=== PATIENT | male | born 1970 | race Caucasian/White ===

== ENCOUNTER 2023-03-03 00:03 | Inpatient (IN) | payer OTHER, SELFPAY ==
[2023-03-03] VITALS (35 sets, daily range): BP systolic 104–149; BP diastolic 70–108; PULSE 55–150; RESP 12–22; TEMP 36.4–37; O2SAT 94–98; BMI 32.3
--- NOTE | ~2023-03-03 | XR_ITS ---
EXAMINATION: XR chest 1V portable INDICATION: Heart palpitations TECHNIQUE: Portable AP chest at 1242 hours COMPARISON: 08/09/2010 FINDINGS: There is a questionable retrocardiac opacity. No pleural effusion or pneumothorax. The card iomediastinal silhouette is normal. IMPRESSION: 1. Possible retrocardiac opacity which could reflect pneumonia or lung nodule. Further evaluation wit h CT of the chest is recommended. Reviewed, dictated and finalized at location F. DEMURRAGE CLERK IMPRESSION: 1. Possible retrocardiac opacity which could reflect pneumonia or lung nodule. Further evaluation with CT of the chest is recommended.
--- NOTE | ~2023-03-03 | US_ITS ---
EXAMINATION: US carotid duplex BI DATE: INDICATION: Claudication. TECHNIQUE: Grayscale, color Doppler, and pulsed Doppler images of the cervical carotid arteries were obtained. The degree of vessel stenosis is placed in one of the following categories: normal, <50%, 5 0-69%, >=70% but less than near-occlusion, near-occlusion, or total occlusion. Note that percent sten osis relative to normal distal artery lumen diameter is indirectly measured from velocity measurement s as described by Yovany, et al. Radiology 2003; 229:340-346. Notes: Normal: Peak systolic velocity <125 centimeters/sec and no plaque <50%. Peak systolic velocity <125 ( EDV <40; ICA/CCA PSV ratio <2.0; used these factors only a tandem lesions or low cardiac output or co ntralateral disease) 50-69 %: PSV 125-230 (EDV 40-100; ratio 2-4) >= 70% but less than near occlusion: PSV greater than 230 (EDV > 100; ratio> 4.0) Near Occlusion: PSV that is variable; markedly narrowed lumen Occlusion: Absent flow on color/spectral Doppler and no lumen on kaminski scale. COMPARISON: None. FINDINGS: RIGHT: The right common carotid artery (CCA) peak systolic velocity (PSV) is 86 cm/s. The right internal car otid artery (ICA) PSV is 111 cm/s. The right ICA end-diastolic velocity (EDV) is 45 cm/s. The right I CA/CCA PSV ratio is 1.3. The external carotid artery (ECA) PSV is 90 cm/s. There is antegrade flow in the right vertebral artery. LEFT: The left CCA PSV is 102 cm/s. The left ICA PSV is 83 cm/s. The left ICA EDV is 38 cm/s. The left ICA/ CCA PSV ratio is 0.8. The ECA PSV is 53 cm/s. There is antegrade flow in the left vertebral artery. IMPRESSION: 1. Less than 50% stenosis in the right internal carotid artery by sonographic criteria. 2. Less than 50% stenosis in the left internal carotid artery by sonographic criteria. Reviewed, dictated and finalized at location B. ENT COMPANION IMPRESSION: 1. Less than 50% stenosis in the right internal carotid artery by sonographic julien lozoya. 2. Less than 50% stenosis in the left internal carotid artery by sonographic josé miguel olivares.
--- NOTE | 2023-03-03 00:09 | ECG_ITS ---
Measurements Intervals [place] Rate: 144 P: ID: 0 QRS: 16 QRSD: 88 T: 30 QT: 284 QTc: 441 Interpretive Statements SUPRAVENTRICULAR TACHYCARDIA DELAYED PRECORDIAL R/S TRANSITION BORDERLINE ST-T WAVE ABNORMALITY- ANTEROLAT/INF LEADS BASELINE ARTIFACT- II, III, AVF ABNORMAL ECG NO PREVIOUS ECG AVAILABLE FOR COMPARISON Electronically Signed On 03-03-2023 9:17:08 AREA DIRECTOR by Darien Dickinson D.O.
--- NOTE | 2023-03-03 00:26 | PC.NURSE ---
0027 The modified valsava maneuver was performed and brought patients HR from 160 to 110. Patient tolerated well.
--- NOTE | 2023-03-03 00:29 | ECG_ITS ---
Measurements Intervals [place] Rate: 106 P: 5 WI: 173 QRS: 12 QRSD: 94 T: 101 QT: 318 QTc: 422 Interpretive Statements SINUS TACHYCARDIA DELAYED PRECORDIAL R/S TRANSITION NONSPECIFIC T-WAVE ABNORMALITY- HIGH LATERAL LEADS ABNORMAL ECG COMPARED TO ECG 03/03/2023 00:10:36 SINUS TACHYCARDIA NOW PRESENT Electronically Signed On 03-03-2023 9:17:45 BRIGADIER by Darien Dickinson D.O.
[2023-03-03] MEDS: SODIUM CHLORIDE 0.9% IV 2,000 ML 999 ML IV CONT (00:32)
[2023-03-03 00:45] LABS: Alanine Aminotransferase 110 U/L (6-50); Albumin Level 4.9 g/dL (3.5-5.1); Alkaline Phosphatase 50 U/L (38-126); Anion Gap 14 mmol/L (8-16); Aspartate Amino Transferase 75 U/L (17-59); Bilirubin,Total 0.6 mg/dL (0.2-1.3); Blood Urea Nitrogen 14 mg/dL (9-20); Calcium 9.7 mg/dL (8.4-10.2); Carbon Dioxide 21 mmol/L (22-30); Chloride 105 mmol/L (98-107); Estimated CRCL calculation 131 ml/min; Estimated Glomerular Filt Rate > 60; Glucose 129 mg/dL (65-110); Lipase 143 U/L (23-300); Potassium 4.2 mmol/L (3.4-5.0); Sodium 140 mmol/L (137-145)
[2023-03-03 00:46] LABS: Prothrombin Time 13.2 Seconds (11.1-14.7)
[2023-03-03 00:47] LABS: Partial Thromboplastin Time 28.1 SECONDS (22.3-36.8)
[2023-03-03 01:22] LABS: Basophils Percent Auto 0.5 % (0.2-1.2); Eosinophils Absolute Auto 0.3 K/mm3 (0-0.3); Eosinophils Percent Auto 3.4 % (0-4.4); Hematocrit 47.8 % (42.0-52.0); Hemoglobin 16.2 g/dL (14.0-18.0); Immature Granulocyte Absolute 0.04 K/mm3 (0.00-0.031); Immature Granulocyte Percent A 0.5 % (0-0.5); Lymphocytes Absolute Auto 3.74 K/mm3 (0.9-3.2); Lymphocytes Percent Auto 42.6 % (18.3-44.2); Mean Corpuscular HGB Conc 33.9 g/dl (32-36); Mean Corpuscular Hemoglobin 32.6 pg (26-34); Mean Corpuscular Volume 96.2 fl (80-100); Monocytes Percent Auto 11.9 % (2.6-8.5); Neutrophils Absolute Auto 3.6 K/mm3 (1.3-6.7); Neutrophils Percent Auto 41.1 % (45.5-73.1); Platelet Count Result 217 k/mm3 (150-375); Red Blood Count 4.97 M/mm3 (4.6-6.20); Red Cell Distribution Width 13.1 % (11.5-14.5); White Blood Count 8.8 K/mm3 (4.5-10.0)
[2023-03-03 01:53] LABS: Troponin I 0.031 ng/mL (0.000-0.034)
--- NOTE | 2023-03-03 03:42 | ED.GENADULT ---
HPI - General Adult General Chief complaint: Arrhythmia/Palpitations Stated complaint: elevated heart rate Time Seen by Provider: 03/03/23 00:12 History of Present Illness HPI narrative: This is a 53-year-old male presenting ED with elevated heart rate. Patient has been having intermittent episodes of palpitations over the last several weeks. It started earlier today and has been consistent throughout the day. He came to the ER because he started to have jaw pain. Patient notes that over the last 2 weeks he started to develop significant pain in his jaw whenever he exerts himself. The pain then resolves when he rests. No diaphoresis vomiting chest pain or shortness of breath during these episodes. Patient had a cardiac workup. Related Data Home Medications Medication Instructions Recorded Confirmed krill [id number]-4-dha-epa 150 cap PO 06/02/19 03/21/22 mg-450 mg capsule,delayed release magnesium 30 mg tablet 30 mg PO DAILY 06/02/19 03/21/22 multivitamin 1 cap PO DAILY 06/02/19 03/21/22 Allergies Allergy/AdvReac Type Severity Reaction Status Date / Time No Known Allergies Allergy Verified 03/03/23 00:13 [facility] Past Medical History Medical History Right knee pain Family History Family History Sibling Family history of mental disorder Depression Mother Hypertension Family history of cardiovascular disease, Onset Age: 50 Family history of coronary artery disease Father Hypertension Family history of coronary artery disease Grandparent Family history of cardiovascular disease, Onset Age: 30 Social History Social History Smoking status: Never smoker Second hand tobacco smoke exposure: No Alcohol intake: current Alcohol use details: Moderate Substance use: never Lack of Transportation: No Lack of Food: Never True Current Housing: I Have Housing Concerned About Future Housing: No Difficulty Paying Gas/Electric Bills: No Difficulty Paying for Meds: No Currently Unemployed: No Education: High School Diploma/GED Living arrangements: with family Additional living arrangements comments: Leona Tinoco Occupation/Education: occupation Additional occupation/education comments: [employer] Gender identity (if verbalized by the patient): Male Exam Narrative: APPEARANCE: No apparent distress. Head: atraumatic. EYES: EOMI, NOSE: Atraumatic NECK: Trachea midline RESPIRATORY: No increased rate of breathing CTAB CARDIOVASCULAR: Tachycardic, regular rate, no peripheral edema ABDOMINAL: Non-distended MUSCULOSKELETAl: No obvious deformities NEURO: Alert. Moving 4/4 extremities SKIN:: Warm, dry. Normal color PSYCHIATRIC: Normal affect Course Vital Signs Vital signs: Vital Signs Temperature 97.6 F 03/03/23 00:03 Pulse Rate 150 H 03/03/23 00:03 Respiratory Rate 16 03/03/23 00:03 Blood Pressure 146/108 H 03/03/23 00:03 Pulse Oximetry 96 03/03/23 00:03 Oxygen Delivery Room Air 03/03/23 00:03 Temperature 97.6 F 03/03/23 00:03 Pulse Rate 89 03/03/23 03:21 Respiratory Rate 13 03/03/23 03:21 Blood Pressure 133/93 H 03/03/23 03:21 Pulse Oximetry 96 03/03/23 03:21 Oxygen Delivery Room Air 03/03/23 00:14 Medical Decision Making [facility] Narrative Medical decision making narrative: -Course: 53-year-old male presenting with SVT. Patient responded to vagal maneuvers. The patient had jaw pain during his SVT. He has also developed jaw pain that occurs any time he exerts himself and resolves with rest. This is new over the last 2 weeks. This is concerning for Angina/unstable angina. Additionally he has elevated troponins after his episode of SVT which also suggests underlying CAD. Patient will be admitted to the hospital for cardiac ev
[2023-03-03 04:20] LABS: Troponin I 0.153 ng/mL (0.000-0.034)
[2023-03-03] MEDS: ENOXAPARIN 120 MG/0.8 ML SYRINGE 102 MG SUB-Q ×2 (04:58→17:19)
--- NOTE | 2023-03-03 06:15 | ADMGEN ---
This patient, Darryl Tinoco, was admitted to IMU Room 209-01. Patient/family oriented to hospital policies and general routines including ID bracelet, bed and alarms, visiting hours, pain management, procedures, bathroom and other care routines, personal items, smoking policy, room service/diet, and visiting hours. Information on how to activate the Rapid Response Team has been discussed. Patient/Family are encouraged to report perceived risks to care and to ask questions if they do not understand what they are told or what they should do.
[2023-03-03 07:18] LABS: Troponin I 0.256 ng/mL (0.000-0.034)
[2023-03-03] MEDS: ASPIRIN 81 MG ENTERIC TABLET PO (08:43)
--- NOTE | 2023-03-03 08:47 | PM.CNCAR ---
Assessment and Plan Assessment and plan (1) SVT (supraventricular tachycardia): Code(s): I47.10 - Supraventricular tachycardia, unspecified Status: Acute (2) Elevated troponin: Code(s): R79.89 - Other specified abnormal findings of blood chemistry Status: Acute Plan 53-year-old man who I believe has 2 distinct cardiovascular problems. He has exertional chest discomfort typical of angina pectoris with his principal risk factor being a prevalent family history of ischemic disease. He also has a supraventricular tachycardia I suspect this is most likely atypical atrial flutter. When he was rather tachycardic last evening he was having some of the ischemic pain that he typically gets with exertion. Troponin levels radha very modestly following this event. I am going to start him on beta-javier treatment today and arrange for coronary angiography tomorrow. I suspect this procedure will occur in the afternoon. Further recommendations course will be forthcoming those findings Parviz Jarvis MD [facility] History of Present Illness History of Present Illness Consult date/time: 03/03/23 08:47 Reason For Visit: Unstable Angina/NSTEMI Narrative: This is a very pleasant 53-year-old man I am seeing at the request of the hospitalist because of chest pain and elevation of troponin. He has no prior known cardiac problems and presented to the emergency department in the middle of the night with symptoms of tachycardia/palpitations and chest pain. He states that he was awakened in the middle of the night about 12 30 with the sense of his heart beating rapidly. He has an [employer] watch and he states his pulse was as fast as 170-180 beats per minute. He and his kind of watch this for about half an hour and then decided to come into the emergency room for evaluation. He came in by ambulance. He was found to be tachycardic and his electrocardiogram appears to show evidence of an SVT, possibly atypical atrial flutter his heart rate on arrival was 145. He apparently converted spontaneously back to sinus rhythm with a heart rate in the 70s to 80s and did not have any ST or T-wave abnormalities. His troponin levels were checked and they have risen slightly to 0.2. He feels comfortable at this time and denies any complaints. He was admitted to the IMU with orders for aspirin and Lovenox. I do not believe the hospitalist service have seen him yet as I dictate this note. The patient interestingly reports symptoms of abrupt tachycardia and palpitations for a number of years these episodes occur very infrequently and have never been diagnosed as such. He also reports it sounds like independent from this history of exertional chest pain that began about 2 or 3 months ago. He states that with mild to moderate activity such as walking distances he will have a central chest pressure that tends to radiate to the anterior aspect of the neck and the jaw that resolves with a few minutes of rest. The symptoms typically occur in exertional fashion but they did occur last night when he was tachycardic as well. He is not experiencing any lightheadedness syncope or near-syncope he denies any orthopnea PND or edema. He says his only previous significant medical problem is sleep apnea which is currently not treated. He also has a family history prevalent for ischemic heart disease. Review of Systems Constitutional: Constitutional: Reports no additional constitutional complaints Eyes: Eyes: Reports no additional eye complaints ENT: Reports system reviewed and no additional complaints, except as documented Cardiovascular: Cardiovascular: Reports as per HPI Respiratory: Respiratory: Reports dyspnea on exertion Gastrointestinal: Gastrointestinal: Reports no additional gastrointestinal complaints Musculoskeletal: Musculoskeletal: Reports no additional musculoskeletal complaints Integumentary/Breasts: Skin/Breast: Reports system reviewed and no ad
[2023-03-03] MEDS: METOPROLOL SUCCINATE EXT REL 50 MG TABCR PO (09:54)
[2023-03-03 15:10] LABS: HDL Direct 83 mg/dL; Triglycerides 133 mg/dL (<150)
[2023-03-03 15:11] LABS: Cholesterol 347 mg/dL (0-200)
[2023-03-03 15:13] LABS: LDL Cholesterol Direct 224 mg/dL
--- NOTE | 2023-03-03 17:54 | PM.IMHP ---
H&P: HPI History of Present Illness Date/Time: 03/03/23 17:54 Chief Complaint: palpitations/rapid heart rate and exertional pain radiating to his BL jaws Narrative: This is a 53 y/o M with PMH of elevated cholesterol not on treatment, and family hx of heart disease, who presents with an acute episode of rapid heart rate/palpitations. He was seen to be in SVT to 144 on the EKG in the ER. In the ER, vagal maneuvers were tried. The pt also had BL jaw pain during the SVT episode. After the vagal maneuvers, the SVT resolved and became sinus tach. His SVT strip showed some ST depressions in V3-5 chest leads. His sinus tach EKG did not show those same st changes and was normal. His CXR showed a retrocardiac opacity. He denies fever, chills, sob, cough, or chest pain, or recent or current illness. His troponin was elevated in ER and radha to 0.2. He was started on therapeutic lovenox. His PMH is also notable for a 2-3 year hx of palpitations and tachycardia that occurs both at rest and with exertion. These episodes self resolve with rest. He has not had this evaluated. It also includes a 2-3 weeks of exertional BL jaw claudication type pain. He denies chest pain. He recently experienced this pain on during a walk he was taking with his . He was planning on making an appointment with his PCP on Saturday, however he had to come in urgently for this tachycardia. Please see the note from the hospital educator for further history which includes sleep apnea and family hx of heart disease. In the pt's social hx, he used to be in the [employer] business and lived in [place]. 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 [facility] Past Medical History Medical History Right knee pain Family History Family History Sibling Family history of mental disorder Depression Mother Hypertension Family history of cardiovascular disease, Onset Age: 50 Family history of coronary artery disease Father Hypertension Family history of coronary artery disease Grandparent Family history of cardiovascular disease, Onset Age: 30 Social History Social History Smoking status: Never smoker Second hand tobacco smoke exposure: No Alcohol intake: current Drinks per week: 7 Alcohol use details: Moderate Substance use: never Substance use type: does not use Lack of Transportation: No Lack of Food: Never True Current Housing: I Have Housing Concerned About Future Housing: No Difficulty Paying Gas/Electric Bills: No Difficulty Paying for Meds: No Currently Unemployed: No Education: High School Diploma/GED Difficulty w/ Childcare or Family Care: No Living arrangements: with family Additional living arrangements comments: Leona Tinoco Occupation/Education: occupation Additional occupation/education comments: [employer] Gender identity (if verbalized by the patient): Male Spiritual care concerns: No Meds Home Medications and Allergies Home Medications Medication Instructions Recorded Confirmed Type krill [id number]-4-dha-epa 150 2 cap PO DAILY 06/02/19 03/03/23 History mg-450 mg capsule,delayed release magnesium 30 mg tablet 30 mg PO DAILY 06/02/19 03/03/23 History multivitamin 1 cap PO DAILY 06/02/19 03/03/23 History Allergies Allergy/AdvReac Type Severity Reaction Status Date / Time No Known Allergies Allergy Verified 03/03/23 00:13 Vital Signs Vital Signs - 24 hr 03/03/23 00:03 03/03/23 00:14 03/03/23 00:10 Temperature 97.6 F Pulse Rate 150 H 145 H Respiratory Rate 16 Blood Pressure 146/108 H Pulse Oximetry 96 97 97 Oxygen Delivery Room Air Room Air 03/03/23 00:15 03/03/23 00:30 03/03/23 00:36 Temperature Pulse Rate 148 H 108 H 105 H Respiratory Rate 12 13 18 Blood Pressure 121/99 H P
[2023-03-03] MEDS: ATORVASTATIN 40 MG TABLET 80 MG PO (21:38)
--- NOTE | 2023-03-03 21:58 | PCRCNOTE ---
Pt does not want to complete his apnea link study this evening, 03/03/2023. Pt states he is scheduled for two test in the morning and is worried he will not sleep much tonight due to being worried for the testing. Pt would rather try the apnea link study tomorrow night, 03/04/2023.
[2023-03-04] VITALS (33 sets, daily range): BP systolic 116–144; BP diastolic 71–98; PULSE 51–88; RESP 12–18; TEMP 36.5–37; O2SAT 94–100
[2023-03-04] MEDS: ASPIRIN 81 MG ENTERIC TABLET PO (09:57)
[2023-03-04] MEDS: METOPROLOL SUCCINATE EXT REL 50 MG TABCR PO (09:57)
[2023-03-04] MEDS: ATORVASTATIN 40 MG TABLET 80 MG PO (09:57)
--- NOTE | 2023-03-04 11:53 | PM.IMPN ---
Progress Note: A&P Assessment and Plan (1) Hyperlipidemia: Code(s): E78.5 - Hyperlipidemia, unspecified Status: Acute (2) Claudication: Code(s): I73.9 - Peripheral vascular disease, unspecified Status: Acute (3) Lung nodule: Code(s): R91.1 - Solitary pulmonary nodule Status: Acute (4) SVT (supraventricular tachycardia): Code(s): I47.10 - Supraventricular tachycardia, unspecified Status: Acute (5) Elevated troponin: Code(s): R79.89 - Other specified abnormal findings of blood chemistry Status: Acute (6) Obesity (BMI 30.0-34.9): Code(s): E66.9 - Obesity, unspecified Status: Acute Plan 1. Stable angina with mild troponin elevation without EKG changes NPO after midnight for planned coronary angiography with cardiology Appreciate cardiology consultation Has been placed on asa, metop 25 er, and therapeutic lovenox. He is asymptomatic 03/04: AM lovenox held for cardiac cath this morning. Asymptomatic this morning. 2. SVT on admission Resolved. Placed on metop 25 er by cardiology 03/04: no events overnight. 3. HLD lipitor 80 4. Lung nodule pt prefers to have CT high res noncon outpt with PCP to avoid excess costs asymptomatic from an infection perspective, therefore will not order covid/rsv/influenza testing 5. Neck claudication symptoms with exertion Most likely cardiac ischemia, but may be a major artery as well Start with carotid u/s. May need CTA test of the upper artery system. High risk of vasculopathy with hx 03/04: carotid u/s negative. if cardiac cath negative, consider CTA of the upper body, aortic type study to evaluate for stenosis of the major arteries. 6. Hx of sleep apnea Apnea link testing tonight 03/04: pt declined testing tonight due to carotid u/s and cardiac cath this morning. will try again tonight if pt is still here if he gets a stent. Full code Inpt/tele/imu Time Spent With Patient Time: 35 min Subjective Date/time seen: 03/04/23 11:53 Interval history: asymptomatic. had occasional sinus arrhythmia while he was sleeping. did not have any episodes of SVT overnight. AM dose of lovenox held for cardiac cath. Carotid u/s taken this morning was negative for BL stenosis. Exam Narrative: APPEARANCE: No apparent distress. Head: atraumatic. EYES:? EOMI, NOSE: Atraumatic NECK: Trachea midline RESPIRATORY: No increased rate of breathing CTAB CARDIOVASCULAR: ?rrr, nl s1,s2 no s3/s4 no murmur or rubs. no le edema ABDOMINAL: Non-distended MUSCULOSKELETAl: No obvious deformities NEURO: Alert. Moving 4/4 extremities SKIN:: Warm, dry. Normal color PSYCHIATRIC: Normal affect Objective Data Vital Signs Vital Signs: Vital Signs - 24 hr 03/03/23 12:00 03/03/23 12:00 03/03/23 15:58 Temperature 98.5 F Pulse Rate 72 67 Respiratory Rate 18 Blood Pressure 131/88 Pulse Oximetry 96 Oxygen Delivery Room Air 03/03/23 14:00 03/03/23 16:00 03/03/23 16:00 Temperature Pulse Rate 79 67 71 Respiratory Rate 18 Blood Pressure Pulse Oximetry 96 Oxygen Delivery Room Air 03/03/23 18:00 03/03/23 20:00 03/03/23 20:00 Temperature 98.6 F Pulse Rate 78 66 61 Respiratory Rate 18 Blood Pressure 144/81 H Pulse Oximetry 96 Oxygen Delivery 03/03/23 20:00 03/03/23 22:00 03/04/23 00:19 Temperature 97.7 F Pulse Rate 55 L 66 Respiratory Rate 18 Blood Pressure 143/91 H Pulse Oximetry 100 Oxygen Delivery Room Air 03/04/23 00:00 03/04/23 00:00 03/04/23 02:00 Temperature Pulse Rate 55 L 62 Respiratory Rate Blood Pressure Pulse Oximetry Oxygen Delivery Room Air 03/04/23 03:19 03/04/23 04:00 03/04/23 04:00 Temperature 98.6 F Pulse Rate 70 51 L Respiratory Rate 18 Blood Pressure 127/76 Pulse Oximetry 96 Oxygen Delivery Room Air 03/04/23 06:00 03/04/23 07:40 03/04/23 11:21 Temperature 98.0 F 98.3 F Pulse Rate 88 68 66 Respiratory
--- NOTE | 2023-03-04 14:29 | WPDMODSED ---
Moderate Sedation Note-Pt Data Patient Data Diagnosis: acute coronary syndrome / non ST elevation NC supraventricular tachycardia Present Complaint: chest pain/tachycardia palpitation Procedure to be performed/Plan: left heart catheterization Allergies Allergy/AdvReac Type Severity Reaction Status Date / Time No Known Allergies Allergy Verified 03/03/23 00:13 Home Medications Medication Instructions Recorded Confirmed Type krill [id number]-3-dha-epa 150 2 cap PO DAILY 06/02/19 03/03/23 History mg-450 mg capsule,delayed release magnesium 30 mg tablet 30 mg PO DAILY 06/02/19 03/03/23 History multivitamin 1 cap PO DAILY 06/02/19 03/03/23 History Current Medications: Active Medications Aspirin (Aspirin 81 Mg Enteric Tablet) [facility] Admin: 03/04/23 09:57 Dose: 81 mg Atorvastatin Calcium (Atorvastatin 40 Mg Tablet) 80 mg PO DAILY [facility] Last Admin: 03/04/23 09:57 Dose: 80 mg Metoprolol Succinate (Metoprolol Succinate Ext Rel 50 Mg Tabcr) 50 mg PO [facility] Last Admin: 03/04/23 09:57 Dose: 50 mg Sedation/Anesthesia: No previous sedation/anesthesia problems (including family history). [facility] Past Medical History Medical History Right knee pain Family History Family History Sibling Family history of mental disorder Depression Mother Hypertension Family history of cardiovascular disease, Onset Age: 50 Family history of coronary artery disease Father Hypertension Family history of coronary artery disease Grandparent Family history of cardiovascular disease, Onset Age: 30 Social History Social History Smoking status: Never smoker Second hand tobacco smoke exposure: No Alcohol intake: current Drinks per week: 7 Alcohol use details: Moderate Substance use: never Substance use type: does not use Lack of Transportation: No Lack of Food: Never True Current Housing: I Have Housing Concerned About Future Housing: No Difficulty Paying Gas/Electric Bills: No Difficulty Paying for Meds: No Currently Unemployed: No Education: High School Diploma/GED Difficulty w/ Childcare or Family Care: No Living arrangements: with family Additional living arrangements comments: Leona Tinoco Occupation/Education: occupation Additional occupation/education comments: [employer] Gender identity (if verbalized by the patient): Male Spiritual care concerns: No Mod Sed Physical Exam Physical Exam Pre Procedural Exam: Normal: Neck, Throat, Airway, Lungs, Heart Size, Heart Rate, Heart Rhythm, Neuro Exam and Extremities and Variation: Appearance ( pleasant overweight man in no distress) Hours since solid foods: 12 Hours since liquid intake: 12 Mallampati Classification: class II Internal Medicine - PN: Obj Da Vital Signs Vital Signs: Vital Signs - 24 hr 03/03/23 15:58 03/03/23 16:00 03/03/23 16:00 Temperature 36.9 C Pulse Rate 67 67 71 Respiratory Rate 18 18 Blood Pressure 131/88 Pulse Oximetry 96 96 Oxygen Delivery Room Air 03/03/23 18:00 03/03/23 20:00 03/03/23 20:00 Temperature 37.0 C Pulse Rate 78 66 61 Respiratory Rate 18 Blood Pressure 144/81 H Pulse Oximetry 96 Oxygen Delivery 03/03/23 20:00 03/03/23 22:00 03/04/23 00:19 Temperature 36.5 C Pulse Rate 55 L 66 Respiratory Rate 18 Blood Pressure 143/91 H Pulse Oximetry 100 Oxygen Delivery Room Air 03/04/23 00:00 03/04/23 00:00 03/04/23 02:00 Temperature Pulse Rate 55 L 62 Respiratory Rate Blood Pressure Pulse Oximetry Oxygen Delivery Room Air 03/04/23 03:19 03/04/23 04:00 03/04/23 04:00 Temperature 37.0 C Pulse Rate 70 51 L Respiratory Rate 18 Blood Pressure 127/76 Pulse Oximetry 96 Oxygen Delivery Room Air 1
--- NOTE | 2023-03-04 15:30 | ECG_ITS ---
Measurements Intervals [place] Rate: 62 P: 25 IA: 182 QRS: 30 QRSD: 98 T: 60 QT: 391 QTc: 398 Interpretive Statements SINUS RHYTHM NORMAL ECG COMPARED TO ECG 03/03/2023 00:32:23 SINUS RHYTHM NOW PRESENT Electronically Signed On 03-04-2023 16:44:50 PRINTER TECHNICIAN by Darien Dickinson D.O.
--- NOTE | 2023-03-04 15:33 | WPDCARDPROC ---
Cardiac Cath Procedure Note Date of procedure:: 03/04/23 Performing physician:: Parviz Jarvis MD Indication:: acute coronary syndrome Brief clinical history:: this is a 53-year-old man without prior documented coronary disease. He has been having exertional angina for approximately 2-3 months. He also has a history of supraventricular tachycardia which was occurring on the time of admission. In the setting of SVT and tachycardia he has significant ischemic pain at rest and has had a troponin rise prompting the recommendation for angiography Procedure Procedure performed:: left ventriculogram coronary angiogram PCI(MARYLU) to the proximal LAD Sedation/Medication given:: fentanyl 50 mg Versed 2 mg case start time 2:50 p.m. case end time 3:24 p.m. sedation provided by Nadir White RN, trained observer Access site:: right femoral artery Estimated blood loss:: 30 cc Procedure note:: patient was brought to the cardiac catheterization lab in the postabsorptive state where the right femoral triangle was prepared and draped in the usual fashion. Anesthesia was provided with 1% lidocaine infiltrated locally. Using the modified Seldinger technique the right femoral artery was punctured and a 5 Iranian vascular sheath was placed. Left heart catheterization was then carried out. A 5 Iranian angled pigtail catheter was used to measure left-sided hemodynamics and to inject the left ventriculogram in the 30 degree CHAMBERLAIN projection. Following this a standard 5 Iranian JR4 catheter was used to engage and inject the right coronary artery and then a 5 Iranian FL4 catheter was used to engage inject the left coronary artery. The cineangiograms were then reviewed and PCI of the proximal LAD was recommended and carried out as detailed below. Prior to PCI the 5 Iranian sheath was exchanged over a guidewire for a 6 Iranian sheath. The patient was systemically anticoagulated with a bolus and infusion of Angiomax for this PCI and he received 600 mg of oral clopidogrel prior to intervention. The procedure as described above was well tolerated and uncomplicated he left the cardiac catheterization lab in stable condition with no evidence of groin hematoma. He was still having mild ischemic chest pain at the completion of the procedure following stent deployment Findings:: hemodynamics: Central aortic pressure is 1 18 over 70 left ventricle 118 over 0 end-diastolic pressure 16 there is no gradient across the aortic valve pullback. Left ventricle: The LV is moderately enlarged the anterior wall is hypodynamic the remainder of the LV contracts relatively well the global ejection fraction I would visually estimate to be 45%. The left main coronary artery is widely patent the left anterior descending is a moderate to large caliber artery extending down to around the apex. There is high-grade stenosis of 99% in the proximal LAD. There is CARIDAD 3 flow in the vessel. The area of atherosclerosis extends from just after the ostium of the LAD to about 20 mm distal to this following the origin of a septal perforating complex. The circumflex is a moderate to large caliber artery there is a OM1 branch taking off is a ramus intermedius that appears to be normal. The distal AV groove portion of the circumflex has a discrete 60-70% stenosis. Right coronary artery is large in caliber and dominant to the posterior circulation the right coronary artery is angiographically free of disease. Intervention: The left coronary artery was engaged using a 6 Iranian CLS 3.5 guiding catheter. I used a 0.014 BMW guidewire to traverse the stenosis and this was advanced without difficulty into the distal / apical segment of the LAD. The lesion was pre-dilated using a 3 x 30 mm Alen angioplasty balloon at nominal pressure resulting in significant angiographic improvement there was a focal disruption at the site of the very tight stenosis following balloo
[2023-03-04] MEDS: SODIUM CHLORIDE 0.9% IV 1,000 ML 125 ML IV CONT (16:56)
--- NOTE | 2023-03-04 16:57 | SUR.PHASEII ---
Phase 2 finished at 1700. 6fr sheath in place. CHARTER REPRESENTATIVE will pull at bedside.
--- NOTE | 2023-03-04 17:40 | PC.NURSE ---
1700-Patient arrived from research laboratory technician to ICU 6 per bed. Oriented to unit and policies. Call light within reach. Will continue to monitor.
[2023-03-04] MEDS: ALPRAZolam (*CRX) 0.5 MG TABLET PO (20:35)
--- NOTE | 2023-03-04 22:15 | PCRCNOTE ---
Pt refused apnea link for this evening, 03/04/2023. Pt states he had a stint put in today and has to lay flat, with minimal movement for the evening. Therefore, he does not want to complete the study. Screening for NATASHA was not completed this evening.
[2023-03-05] VITALS (9 sets, daily range): BP systolic 134–139; BP diastolic 85–93; PULSE 66–84; RESP 14–16; TEMP 36.5–36.6; O2SAT 95–98
--- NOTE | 2023-03-05 00:35 | PC.NURSE ---
Right groin soft, non tender. No active bleeding noted. Bedrest completed. Up to side of bed with assist x1. Tolerated well
[2023-03-05] MEDS: ASPIRIN 81 MG CHEWABLE TABLET PO (09:17)
[2023-03-05] MEDS: CLOPIDOGREL BISULFATE 75 MG TABLET PO (09:17)
[2023-03-05] MEDS: ATORVASTATIN 40 MG TABLET 80 MG PO (09:17)
[2023-03-05] MEDS: LOSARTAN POTASSIUM 25 MG TABLET PO (09:17)
[2023-03-05] MEDS: METOPROLOL SUCCINATE EXT REL 50 MG TABCR PO (09:17)
--- NOTE | 2023-03-05 10:34 | PCCPR ---
Spoke with Darryl at bedside overview of program given. Pt verbalized understanding. state he will discuss with his and consider it. Explained our coordinator would be following up if he has further questions and to verify his insurance.
--- NOTE | 2023-03-05 14:17 | PM.PNCARD ---
Progress Note: A&P Assessment and Plan (1) NSTEMI (non-ST elevated myocardial infarction): Code(s): I21.4 - Non-ST elevation (NSTEMI) myocardial infarction Status: Acute Assessment and Plan: Cardiac cath 03/04 showed: 1.? ?Right coronary dominant circulation with coronary artery disease with very severe subtotal stenosis of the proximal LAD 2. ? Moderate stenosis of 60-70% in the AV groove portion of the circumflex which is discrete and unlikely to be flow-limiting 3. ? Anterior wall hypokinesia because of the hypoperfused anterior wall due to the subtotal LAD stenosis 4. ? Successful revascularization involving PTCA and drug-eluting stent to the proximal LAD as detailed above which covered the entire area of disease including the high-grade stenosis providing an excellent anatomical result Patient to be on: ASA 81mg once daily indefinitely. Plavix 75mg once daily for at least 1 year. High intensity statin LV gram with LVEF 45%. Has been started on Toprol and Losartan. Patient can be discharged home today from a cardiac standpoint. Will arrange outpatient follow up with Dr. Jarvis. Recommendations/Plan discussed with Hospitalist. Subjective Date/time seen: 03/05/23 14:17 Interval history: Reason for visit: NSTEMI HPI: This is a very pleasant 53-year-old man I am seeing at the request of the hospitalist because of chest pain and elevation of troponin.? He has no prior known cardiac problems and presented to the emergency department in the middle of the night with symptoms of tachycardia/palpitations and chest pain.? He states that he was awakened in the middle of the night about 12 30 with the sense of his heart beating rapidly.? He has an Mevvy watch and he states his pulse was as fast as 170-180 beats per minute.? He and his kind of watch this for about half an hour and then decided to come into the emergency room for evaluation.? He came in by ambulance.? He was found to be tachycardic and his electrocardiogram appears to show evidence of an SVT, possibly atypical atrial flutter his heart rate on arrival was 145.? He apparently converted spontaneously back to sinus rhythm with a heart rate in the 70s to 80s and did not have any ST or T-wave abnormalities.? His troponin levels were checked and they have risen slightly to 0.2.? He feels comfortable at this time and denies any complaints.? He was admitted to the IMU with orders for aspirin and Lovenox.? I do not believe the hospitalist service have seen him yet as I dictate this note.? The patient interestingly reports symptoms of abrupt tachycardia and palpitations for a number of years these episodes occur very infrequently and have never been diagnosed as such.? He also reports it sounds like independent from this history of exertional chest pain that began about 2 or 3 months ago.? He states that with mild to moderate activity such as walking distances he will have a central chest pressure that tends to radiate to the anterior aspect of the neck and the jaw that resolves with a few minutes of rest.? The symptoms typically occur in exertional fashion but they did occur last night when he was tachycardic as well.? He is not experiencing any lightheadedness syncope or near-syncope he denies any orthopnea PND or edema.? He says his only previous significant medical problem is sleep apnea which is currently not treated.? He also has a family history prevalent for ischemic heart disease. Date of service 03/05: Doing well today without any cardiac symptoms. Review of Systems Review of Systems: No chest pain, shortness of breath, bleeding Exam Const: General: comfortable and no acute distress HENMT: Mouth: Yes moist mucous membranes Eyes: General: appearance normal, both eyes and all related structures Sclera: sclerae normal Neck: Neck: supple Resp: Effort & Inspection: normal respiratory effort Cardio: Rate: regular rate Rhythm: regular rhythm Skin:
--- NOTE | 2023-03-05 14:57 | PM.DS ---
DS: Admitting Diagnosis Discharge Date 03/05/23 Admitting Diagnosis chest pain, palpitations DS: Discharge Diagnosis Discharge Diagnosis (1) NSTEMI (non-ST elevated myocardial infarction): Code(s): I21.4 - Non-ST elevation (NSTEMI) myocardial infarction Status: Acute (2) Lung nodule: Code(s): R91.1 - Solitary pulmonary nodule Status: Acute (3) SVT (supraventricular tachycardia): Code(s): I47.10 - Supraventricular tachycardia, unspecified Status: Acute (4) Elevated troponin: Code(s): R79.89 - Other specified abnormal findings of blood chemistry Status: Acute (5) Obesity (BMI 30.0-34.9): Code(s): E66.9 - Obesity, unspecified Status: Acute DS: Summary Hospital Course Hospital Course: 53M w/ no PMH presented as he awoke from his sleep with palpitations and chest pain which radiated to his jaw. His Apple watch stated pulse as fast as 170-180. On arrival via EMS he was found to have SVT on EKG without any acute ischemic changes. His troponin however was elevated. He underwent cardiac cath on 03/04 which demonstrated the followin.? ?Right coronary dominant circulation with coronary artery disease with very severe subtotal stenosis of the proximal LAD 2. ? Moderate stenosis of 60-70% in the AV groove portion of the circumflex which is discrete and unlikely to be flow-limiting 3. ? Anterior wall hypokinesia because of the hypoperfused anterior wall due to the subtotal LAD stenosis 4. ? Successful revascularization involving PTCA and drug-eluting stent to the proximal LAD as detailed above which covered the entire area of disease including the high-grade stenosis providing an excellent anatomical result on 03/05 he is mt'ed home in stable condition and chest pain free. He will go home on asa 81mg indefinitely, plavix for at least one year, lipitor 80mg po qday, toprol and losartan. He will follow up with his PCP and Dr. Jarvis. a questionable retrocardiac opacity seen on CXR. He declined any further imaging this stay and will schedule a high resolution CT scan with his PCP for further workup. [employer] all of his questions were answered and he was in agreement with the rest of the plan. Pt was full code during his stay. More than 30 minutes spent on discharge planning and documentation. Time Spent with Patient Time attestation: Total time spent providing and/or coordinating discharge services: Exam Const: General: cooperative and no acute distress Resp: Effort & Inspection: normal respiratory effort Auscultation: clear to auscultation bilaterally Cardio: Rate: regular rate Rhythm: regular rhythm Heart sounds: S1 normal heart sound present and S2 normal heart sound present GI: GI Palp: No abdominal tenderness Auscultation: normal bowel sounds Discharge Plan Discharge Attending physician on discharge: Jazzy Byrd Consulting providers: Parviz Jarvis Discharging Clinician: Jazzy Byrd Patient Disposition: Home, Self-Care Activity: august show Diet: heart healthy Patient Instructions: Heart Attack (DC), Heart Healthy Diet (DC), Acute Coronary Syndrome (DC), Cardiac Rehabilitation (DC), Heart Catheterization (DC), Coronary Intravascular Stent Placement (DC) Stand Alone Forms: General Discharge Information Follow-up/Referrals: Parviz Jarvis MD [Physician] - 4 Weeks (f/u on CAD) UNKNOWN,DOCTOR [Primary Care Provider] - 2 Weeks (follow up on lung nodule) Discharge Medications: New atorvastatin 40 mg Tablet 80 mg PO DAILY Qty: 90 1RF metoprolol succinate 50 mg Tablet Extended Release 24 Hr 50 mg PO QAM Qty: 90 1RF clopidogrel 75 mg Tablet 75 mg PO DAILY Qty: 90 1RF losartan 25 mg Tablet 25 mg PO DAILY Qty: 90 1RF aspirin [Children's Aspirin] 81 mg Tablet,Chewable 81 mg PO DAILY@0800 Qty: 90 1RF Continued krill czc-kmbwd-3-dha-epa 150-450 mg capsule,delayed release(DR/EC)
== END 2023-03-05 16:09 | disposition home or self-care (01) | DRG 322 ==
LOC: ANHED 04:23 → ANHIMU 05:59
PROVIDERS: Internal Medicine; Specialist; Admitting Provider Internal Medicine; Emergency Provider Emergency Medicine; Visit Provider General Practice
PROC: 4A023N7 Measurement of Cardiac Sampling and Pressure, Left Heart, Percutaneous Approach (ICD-10-PCS; CPT 93452; principal; 2023-03-04 13:00)
PROC: 027034Z Dilation of Coronary Artery, One Artery with Drug-eluting Intraluminal Device, Percutaneous Approach (ICD-10-PCS; 2023-03-04 13:00)
DX: I21.4 Non-ST elevation (NSTEMI) myocardial infarction (principal); I47.10 Supraventricular tachycardia, unspecified; I25.10 Atherosclerotic heart disease of native coronary artery without angina pectoris; E78.5 Hyperlipidemia, unspecified; G47.30 Sleep apnea, unspecified; R79.89 Other specified abnormal findings of blood chemistry
CPT/HCPCS: 36415; 71045; 80053; 80061; 83690; 84484; 85025; 85610; 85730; 93005; 93458; 93880; 96360; 99285; A9270; C1725; C1769; C1874; C1887; C1894; C9600; J0153; J0583; J1644; J1650; J2250; J3010; J7030; J7040

== ENCOUNTER 2023-03-20 09:48 | Outpatient (CLI) | payer OTHER, SELFPAY ==
[2023-03-20 12:44] LABS: Alanine Aminotransferase 96 U/L (6-50); Albumin Level 4.7 g/dL (3.5-5.1); Alkaline Phosphatase 58 U/L (38-126); Anion Gap 8 mmol/L (8-16); Aspartate Amino Transferase 80 U/L (17-59); Bilirubin,Total 0.7 mg/dL (0.2-1.3); Blood Urea Nitrogen 16 mg/dL (9-20); Calcium 9.3 mg/dL (8.4-10.2); Carbon Dioxide 24 mmol/L (22-30); Chloride 104 mmol/L (98-107); Estimated Glomerular Filt Rate > 60; Glucose 98 mg/dL (65-110); Potassium 4.2 mmol/L (3.4-5.0); Sodium 136 mmol/L (137-145)
[2023-03-20 13:28] LABS: Hemoglobin A1C 5.8 % (<5.7)
== END 2023-03-20 09:49 | disposition home or self-care (01) ==
LOC: ANHGOSHLAB 09:49
PROVIDERS: PCP Emergency Medicine; Visit Provider Emergency Medicine
DX: E78.5 Hyperlipidemia, unspecified (principal); R73.9 Hyperglycemia, unspecified; R74.8 Abnormal levels of other serum enzymes
CPT/HCPCS: 36415; 80053; 83036

== ENCOUNTER 2023-05-05 09:12 | Emergency (ER) | payer OTHER, SELFPAY ==
[2023-05-05] VITALS (11 sets, daily range): BP systolic 140–160; BP diastolic 87–90; PULSE 60–84; RESP 10–18; TEMP 36.7; O2SAT 96–100
--- NOTE | ~2023-05-05 | XR_ITS ---
EXAMINATION: XR chest 2V 05/05/2023 09:56 INDICATION: Dyspnea PROCEDURE: 2 view chest COMPARISON: 03/03/2023 FINDINGS: The lungs are clear. The cardiomediastinal silhouette is within normal limits. There are no pleural effusions. There is no pneumothorax suspected. IMPRESSION: 1: NO ACUTE CARDIOPULMONARY DISEASE. Reviewed, dictated and finalized at location A. NHOUSE TECHNICIAN
--- NOTE | 2023-05-05 09:18 | ECG_ITS ---
Measurements Intervals [place] Rate: 73 P: 13 [place]: 165 QRS: -1 QRSD: 97 T: 37 QT: 381 QTc: 420 Interpretive Statements SINUS RHYTHM ATRIAL PREMATURE COMPLEXES DELAYED PRECORDIAL R/S TRANSITION BORDERLINE T WAVE ABNORMALITY- INFERIOR LEADS BASELINE WANDER- I, III, AVF BORDERLINE ECG COMPARED TO ECG 03/05/2023 10:40:04 NO SIGNIFICANT CHANGES Electronically Signed On 05-05-2023 11:29:48 ELECTRONIC SCIENCE TEACHER by Darien Dickinson D.O.
--- NOTE | 2023-05-05 09:45 | ED.ARRPALP ---
HPI - Arrhythmia/Palpitations General Chief Complaint: Arrhythmia/Palpitations Stated Complaint: PVC'S Time Seen by Provider: 05/05/23 09:20 History of Present Illness HPI narrative: 53-year-old male with history of CAD, s/p stent placement on 03/04/2023, hyperlipidemia, SVT, NSTEMI reports for evaluation for palpitations x3 days. Patient reports a history of PVCs intermittently in the past. States he normally takes a potassium supplement in these resolved the PVCs. States within the past 3 days, the PVCs sensation has increased. States it feels like his heart is skipping beats, pausing, and then having a large thump. States he is not taking potassium supplements because he read that it interacts with his medications. Reports he has not slept since 2:00 a.m. last night because the palpitations are bothersome and is starting to cause some anxiety. He denies chest pain, shortness of breath, syncope, jaw, shoulder, neck pain, abdominal pain, lower extremity edema, nausea, vomiting, diarrhea, cough or congestion, fever or urinary complaints. Patient voices concern given recent cardiac history. He was seen in our ER on 03/03/2023 for about of SVT and jaw pain. He was admitted due to concerns for CAD, underwent cardiac catheterization with the following findings: 1.? ?Right coronary dominant circulation with coronary artery disease with very severe subtotal stenosis of the proximal LAD 2. ? Moderate stenosis of 60-70% in the AV groove portion of the circumflex which is discrete and unlikely to be flow-limiting 3. ? Anterior wall hypokinesia because of the hypoperfused anterior wall due to the subtotal LAD stenosis 4. ? Successful revascularization involving PTCA and drug-eluting stent to the proximal LAD as detailed above which covered the entire area of disease including the high-grade stenosis providing an excellent anatomical result patient was discharged home on 03/05 with 81 mg of aspirin, Plavix, Lipitor, Toprol and losartan. His wire brush maker is Dr. Jarvis. Pt contacted Dr. Jarvis's office and went in for an EKG at the onset of symptoms, however has not heard back from his office regarding results. Related Data Home Medications Medication Instructions Recorded Confirmed krill qec-uwqdr-2-dha-epa 150 2 cap PO DAILY 02/25/20 12/05/23 mg-450 mg capsule,delayed release magnesium 30 mg tablet 30 mg PO DAILY 06/02/19 03/12/23 multivitamin 1 cap PO DAILY 06/02/19 03/12/23 Allergies Allergy/AdvReac Type Severity Reaction Status Date / Time No Known Allergies Allergy Verified 05/05/23 09:22 Review of Systems Review of Systems: CONSTITUTIONAL: Denies fever, chills, or sweats. EYES: Denies visual changes, redness, or discharge. ENT: Denies rhinorrhea, congestion, sore throat, or otalgia. CARDIOVASCULAR: see HPI RESPIRATORY: Denies cough or dyspnea. GASTROINTESTINAL: Denies abdominal pain, nausea, vomiting, or diarrhea. GENITOURINARY: Denies dysuria or hematuria. SKIN: Denies rash or itching. MUSCULOSKELETAL: Denies back pain, joint pain, or myalgia. NEUROLOGIC: Denies headache, numbness, or weakness. PSYCHIATRIC: Denies anxiety or depression. [facility] Past Medical History Medical History Right knee pain Family History Family History Sibling Family history of mental disorder Depression Mother Hypertension Family history of cardiovascular disease, Onset Age: 50 Family history of coronary artery disease Father Hypertension Family history of coronary artery disease Grandparent Family history of cardiovascular disease, Onset Age: 30 Social History Social History Smoking status: Never smoker Second hand tobacco smoke exposure: No Alcohol intake: former Substance use: never Substance use type: does not use Lack of Trans
--- NOTE | 2023-05-05 09:54 | PC.NURSE ---
Pt to xr
[2023-05-05 09:59] LABS: Basophils Percent Auto 0.5 % (0.2-1.2); Eosinophils Absolute Auto 0.2 K/mm3 (0-0.3); Eosinophils Percent Auto 2.2 % (0-4.4); Hematocrit 47.7 % (42.0-52.0); Hemoglobin 16.1 g/dL (14.0-18.0); Immature Granulocyte Absolute 0.05 K/mm3 (0.00-0.031); Immature Granulocyte Percent A 0.6 % (0-0.5); Lymphocytes Absolute Auto 3.19 K/mm3 (0.9-3.2); Lymphocytes Percent Auto 36.2 % (18.3-44.2); Mean Corpuscular HGB Conc 33.8 g/dl (32-36); Mean Corpuscular Hemoglobin 32.6 pg (26-34); Mean Corpuscular Volume 96.6 fl (80-100); Mean Platelet Volume 10.9 fl (7.4-10.4); Monocytes Absolute Auto 0.8 K/mm3 (0.1-0.6); Monocytes Percent Auto 9.2 % (2.6-8.5); Neutrophils Absolute Auto 4.5 K/mm3 (1.3-6.7); Neutrophils Percent Auto 51.3 % (45.5-73.1); Platelet Count Result 218 k/mm3 (150-375); Red Blood Count 4.94 M/mm3 (4.6-6.20); Red Cell Distribution Width 12.9 % (11.5-14.5); White Blood Count 8.8 K/mm3 (4.5-10.0)
[2023-05-05] MEDS: SODIUM CHLORIDE 0.9% IV 1,000 ML 999 ML IV CONT (10:07)
[2023-05-05 10:08] LABS: Alanine Aminotransferase 92 U/L (6-50); Albumin Level 4.8 g/dL (3.5-5.1); Alkaline Phosphatase 58 U/L (38-126); Anion Gap 9 mmol/L (8-16); Aspartate Amino Transferase 58 U/L (17-59); Blood Urea Nitrogen 14 mg/dL (9-20); Calcium 9.6 mg/dL (8.4-10.2); Carbon Dioxide 27 mmol/L (22-30); Chloride 103 mmol/L (98-107); Estimated CRCL calculation 131 ml/min; Estimated Glomerular Filt Rate > 60; Glucose 118 mg/dL (65-110); Potassium 4.2 mmol/L (3.4-5.0); Sodium 139 mmol/L (137-145)
[2023-05-05] MEDS: METOPROLOL SUCCINATE EXT REL 25 MG TABCR PO (11:36)
== END 2023-05-05 12:05 | disposition home or self-care (01) ==
PROVIDERS: Emergency Provider Physician Assistant; PCP Emergency Medicine
DX: I49.1 Atrial premature depolarization (principal); E78.5 Hyperlipidemia, unspecified; I25.2 Old myocardial infarction; I25.10 Atherosclerotic heart disease of native coronary artery without angina pectoris; Z95.5 Presence of coronary angioplasty implant and graft; Z79.82 Long term (current) use of aspirin; R94.31 Abnormal electrocardiogram [ECG] [EKG]
CPT/HCPCS: 36415; 71046; 80053; 83735; 85025; 93005; 96360; 99283; A9270; J7030

== ENCOUNTER 2024-03-03 08:27 | Outpatient (CLI) | payer OTHER, SELFPAY ==
--- NOTE | 2024-03-25 15:24 | P.SLEEP_ITS ---
Sleep Study Date of Study: 03/03/24 Ordering Provider: Maty Hendrickson Interpreting Physician: Nishi Ontiveros DO Sleep Study Type: Split Polysomnogram Height: 1.8 m Weight: 104.326 kg Body Mass Index: 32.1 Neck Circumference (inches): 18 Cucumber: 6 Reason for Sleep Study Snoring, previously diagnosed NATASHA Sleep History The patient is a 54-year-old male that had a sleep study ordered by his primary care physician for evaluation of sleep apnea. The patient occasionally awakens from sleep short of breath. He frequently awakens at night with heartburn, belching or cough. He constantly snores loudly enough that others complain. He constantly has trouble sleeping when he has a cold. He occasionally wakes up gasping for air throughout the night. He constantly has breathing problems at night observed by himself or others. He occasionally sweats excessively at night. He occasionally has heart palpitations or irregular heartbeats during the night. He occasionally falls asleep during the day but never while driving. He denies cataplexy. He rarely has trouble at school or work due to sleepiness. He occasionally feels unable to move while waking up or falling asleep. He frequently experiences vivid dreamlike scenes upon awakening or falling asleep. He denies feeling afraid of going to sleep. He rarely has nightmares. He occasionally remembers his dreams. He frequently has thoughts racing through his mind. He rarely feels sad or depressed. He occasionally has anxiety. He frequently has muscular tension. He frequently notices parts of his body jerk. He denies kicking during the night. He denies having crawling and aching feelings in his legs and denies having leg pain during the night. He occasionally grinds his teeth during sleep but never awakens with morning jaw pain. He is rarely bothered by pain during the day and frequently awakened by pain during night. He constantly wakes up feeling stiff in morning. He constantly wakes up with sore or achy muscles. He occasionally wakes up with pain spine and other joints. He goes to bed at 9:30 p.m. on both weekdays and weekends. It takes him 10 minutes to fall asleep. He wakes up frequently throughout the night for unknown reasons in it takes 10 minutes to fall back asleep. He wakes up at 7:00 a.m. on both weekdays and weekends. He typically gets 8 hours of sleep per night. He does not stay in bed after waking up morning. He currently lives with his and 2 adult children. He denies consuming any caffeinated beverages within 2 hours of bedtime. He denies engaging in physical exercise before bedtime. He will read watch television before falling asleep. He denies taking naps in afternoon or the evening. He will consume caffeinated beverages throughout the day. He consumes 2 alcoholic beverages per day. He denies tobacco and recreational drug use. [facility] Past Medical History Medical History Right knee pain Family History Family History Sibling Family history of mental disorder Depression Mother Hypertension Family history of cardiovascular disease, Onset Age: 50 Family history of coronary artery disease Father Hypertension Family history of coronary artery disease Grandparent Family history of cardiovascular disease, Onset Age: 30 Social History Social History Smoking status: Never smoker Second hand tobacco smoke exposure: No Alcohol intake: former Substance use: never Substance use type: does not use Lack of Transportation: No Lack of Food: Never True Current Housing: I Have Housing Concerned About Future Housing: No Difficulty Paying Gas/Electric Bills: No Difficulty Paying for Meds: No Currently Unemployed: No Education: High School Diploma/GED Difficulty w/ Childcare or Family Care: No Living arrangements: with family Additional living arrangements comments: [facility] Occupation/Education: occupation Additional occupation/education comments: [employer] Gender identity (if verbalized by the patient): Male Spiritual care concerns: No Medications Home Medications ?Medication ?Instructions ?Recorded ?Confirmed ?Type krill [id number] 150 2 cap PO DAILY 06/02/19 11/19/23 History mg-450 mg capsule,delayed release magnesium 30 mg tablet 30 mg PO DAILY 06/02/19 11/19/23 History multivitamin 1 cap PO DAILY 06/02/19 11/19/23 History aspirin 81 mg chewable tablet 81 mg PO DAILY@0800 #90 tabs 03/05/23 11/19/23 Rx (Children's Aspirin) atorvastatin 40 mg tablet 80 mg (2 x 40 mg) PO DAILY #90 tabs 03/05/23 11/19/23 Rx clopidogrel 75 mg tablet 75 mg PO DAILY #90 tabs 03/05/23 11/19/23 Rx losartan 25 mg tablet 25 mg PO DAILY #90 tabs 03/05/23 11/19/23 Rx metoprolol succinate 50 mg 50 mg PO QAM #90 tabs 03/05/23 11/19/23 Rx tablet,extended release 24 hr metoprolol succinate 25 mg 25 mg PO DAILY #30 tabs 05/05/23 11/19/23 Rx tablet,extended release 24 hr amoxicillin 875 mg tablet 875 mg PO Q12H #14 tabs 11/19/23 11/19/23 Rx polymyxin B sulfate 10,000 1 drp LEFT EYE QID #10 mL 11/19/23 Rx unit-trimethoprim 1 mg/mL eye drops Sleep Procedure A full night split study using the Vend multi-channel system recorded the standard physiologic parameters including EEG, EOG, submentalis EMG, anterior tibialis EMG, EKG, body position, nasal and oral airflow using nasal pressure sensor and thermistor.? Respiratory parameters of chest and abdominal movements were recorded with Respiratory Inductance Plethysmography belts. Oxygen saturation was recorded by pulse oximetry. Video monitoring was also performed. Sleep stages, periodic limb movements, and EEG arousals were scored in 30 second epochs according to the criteria of the AASM Scoring Manual. The Apnea-Hypopnea Index was calculated using CMS guidelines for definition of hypopnea with 4% O2 desaturations while scoring respiratory events. Sleep Architecture During the diagnostic portion of the study, the total recording time was 280.3 minutes. The total sleep time was 167.5 minutes. Sleep latency was 49.3 minutes.? REM latency was 187.0 minutes. Sleep Efficiency was 59.8%. The patient had 30 awakenings for an awakening index of 10.7. Wake after sleep onset time was 63.5 minutes. The patient spent 30.5 minutes, 18.2% of total sleep time in Stage N1. The patient spent 114.5 minutes, 68.4% in Stage N2. The patient spent 0.0 minutes, 0.0% in Stage N3. The patient spent 22.5 minutes, 13.4% in Stage REM sleep. At 02:04:18 AM the patient was placed on PAP treatment and was titrated at pressures ranging from 5 cm H20 up to 8 cm H20. During the treatment portion of the study, the total recording time was 230.6 minutes.? The total sleep time was 66.0 minutes. Sleep latency was 71.0 minutes. REM latency was 115.0 minutes. Sleep Efficiency was 28.6%. Wake after Sleep Onset time was 93.5 minutes. The patient spent 28.5 minutes, 43.2% of total sleep time in Stage N1. The patient spent 26.5 minutes, 40.2% in Stage N2. The patient spent 0.0 minutes, 0.0% in Stage N3. The patient spent 11.0 minutes, 16.7% in Stage REM. Respiratory Analysis During the diagnostic portion of the study, the patient had 7 hypopneas and 20 obstructive apneas for an overall Apnea Hypopnea Index of 9.7 events per hour. The REM Apnea Hypopnea Index was 29.3. The NREM Apnea Hypopnea Index was 8.7. The patient had a Central Apnea Hypopnea Index of 0. There was no evidence of Ata-Bass Respirations. During the treatment portion of the study, the patient had 1 obstructive apnea for an overall Apnea Hypopnea Index of 0.9 events per hour. The REM Apnea Hypopnea Index was 0. The NREM Apnea Hypopnea Index was 1.1. The patient had a Central Apnea Hypopnea Index of 0. There was no evidence of Ata-Bass Respirations. The patient was started on CPAP 5 cm H2O and titrated to CPAP 8 cm H2O due to hypopneas. The patient was able to fall asleep starting on CPAP 6 cm H2O. The patient was able to achieve REM sleep starting on CPAP 7 cm H2O. The patient had a sleep efficiency of 28.6% during the treatment portion the study which is very poor. Arousals During the diagnostic portion of the study, there were a total of 137 arousals for an arousal index of 49.1.? There were 49 respiratory arousals for an index of 17.6. There were 33 periodic limb movement arousals for an index of 11.8.? There were 12 isolated limb movement arousals for an index of 4.3. There were 43 spontaneous arousals for an index of 15.4. During the treatment portion of the study, there were a total of 68 arousals for an index of 61.8.? There were 8 respiratory arousals for an index of 7.3. There were 0 periodic limb movement arousals for an index of 0.? There were 9 isolated limb movement arousals for an index of 8.2. There were 51 spontaneous arousals for an index of 46.4. Periodic Limb Movements During the diagnostic portion of the study, the patient had 34 isolated limb movements with an index of 12.2. The patient had 92 periodic limb movements with an index of 33.0, which is elevated (normal < 15). The patient had a total of 126 limb movements with a total limb movement index of 45.1. During the treatment portion of the study, the patient had 16 isolated limb movements with an index of 14.5. The patient had 0 periodic limb movements with an index of 0. The patient had a total of 16 limb movements with a total limb movement index of 14.5. Oximetry Data During the diagnostic portion of the study, the patient had an average oxygen saturation of 93.4% in wake with a minimum oxygen saturation of 90% and a maximum oxygen saturation of 97%. The patient had an average oxygen saturation of 92.4% in sleep with a minimum oxygen saturation of 87.0% and a maximum oxygen saturation of 96.0%. The patient had 48 oxygen desaturations resulting in an Oxygen Desaturation Index of 17.2. The patient spent 0.5 minutes, 0.2% of total sleep time with an oxygen saturation less than 88%. During the treatment portion of the study, the patient had an average oxygen saturation of 93.5% in wake with a minimum oxygen saturation of 91.0% and a maximum oxygen saturation of 96.0%. The patient had an average oxygen saturation of 93.1% in sleep with a minimum oxygen saturation of 91.0% and a maximum oxygen saturation of 95.0%. The patient had 9 oxygen desaturations resulting in an Oxygen Desaturation Index of 8.2. The patient spent 0 minutes of total sleep time with an oxygen saturation less than 88%. Snoring Profile Moderate to loud snoring was present in the baseline portion of the study. The snoring resolved once the patient was titrated to 8 cm H2O. Cardiac Profile The EKG lead showed normal sinus rhythm with occasional PVCs. During the diagnostic portion of the study, the average pulse rate was 63.6 bpm.? The minimum pulse rate was 52.0 bpm. The maximum pulse rate was 89.0 bpm. During the treatment portion of the study, the average pulse rate was 59.4 bpm.? The minimum pulse rate was 49.0 bpm. The maximum pulse rate was 91.0 bpm. EEG Profile No signs of seizure activity seen. Assessment and Plan Assessment and Plan (1) NATASHA (obstructive sleep apnea): Code(s): G47.33 - Obstructive sleep apnea (adult) (pediatric) Status: Acute Assessment and Plan: In the baseline portion of study, the patient had an overall AHI of 9.7 with desaturation down to 87%. This is consistent with mild sleep apnea. Due to the patient's cardiac history, he qualifies for treatment. On the final pressure setting, the patient's sleep apnea was not fully treated and he still was snoring. If the patient is interested in trying CPAP therapy, I recommend prescribing AutoPAP 5-15 cm H2O, size medium Resmed AirTouch F20 full face mask, CPAP filters/tubing and heated humidity. His CPAP pressure range can be narrowed after reviewing his compliance data. Alternatively, the patient could also be referred to Sleep Dentistry for consultation for a mandibular advancement device. This device is FDA approved for mild to moderate sleep apnea. Data The data obtained during this sleep study is adequate for interpretation. Certification This sleep study has been reviewed by a board certified sleep medicine physician.
[2024-03-26 15:51] VITALS: BMI 32.1
== END 2024-03-04 06:56 | disposition home or self-care (01) ==
LOC: ANHCSM 08:28
DX: G47.33 Obstructive sleep apnea (adult) (pediatric) (principal)
CPT/HCPCS: 95811